=== PATIENT | female | born 1965 | race Caucasian/White ===

== ENCOUNTER → 2016-06-14 | Outpatient (CLI) | payer BC ==
--- NOTE | 2016-07-01 17:53 | P.PN ---
Progress Note - Text DATE OF SERVICE: 06/14/2016 CHIEF COMPLAINT: Follow-up gastric bypass. HISTORY OF PRESENT ILLNESS: Luzmaria Alfonso is a 51-year-old female who presents with complications from adjustable gastric band including severe lifestyle limiting gastroesophageal reflux disease and gastric prolapse. She initially had her band removal in June 2014. She then underwent a Matti-en-Y gastric bypass in January 2015. Her highest weight has been 229 pounds. [place] body weight for her 5-foot, 1-inch frame is 131 pounds. Today she comes in weighing 167 pounds. She has actually gained approximately 11 pounds since her last visit 5 months ago. She reports increase in energy. Body mass index is reduced from 43.4 down to 31.6. Percent excess weight loss is reduced to 63%. Total BMI point reduction is 11.7. She is almost a year and a half out from her procedure. She reports intermittent reflux. Approximately more than 6 months ago she had a balloon dilation for which her reflux had resolved. As she reports recurrence of her symptoms, she did complete a manometry. Now she presents for further evaluation and management. She reports her symptoms are worse especially with drink water. PAST MEDICAL HISTORY: 1. Gastroesophageal reflux disease. 2. History of morbid obesity. 3. Osteoarthritis. 4. Prior history of heart attack. 5. Morbid obesity. PAST SURGICAL HISTORY: 1. Tonsillectomy. 2. Hysterectomy. 3. Adjustable gastric band placement with subsequent removal. 4. Laparoscopic cholecystectomy. 5. Status post Matti-en-Y gastric bypass. 6. Upper endoscopy. MEDICATIONS: 1. Vitamin A. 2. Thiamine. 3. Theragran. 4. Nexium as needed. 5. Vitamin D. 6. Vitamin B12. 7. Calcium. 8. Acarbose. ALLERGIES: 1. ADHESIVE TAPE. 2. PREDNISONE. 3. SULFA. 4. STERI-STRIP. SOCIAL HISTORY: Denies any active alcohol or tobacco use. FAMILY HISTORY: Mother of complications of heart disease including diabetes. Father is living. She denies any known history of familial cancers. REVIEW OF SYSTEMS: CONSTITUTIONAL: [place] body weight is 131 pounds for a 5-foot, 1-inch frame. Original weight of 229 pounds. Present weight of 167 pounds. She has maintained a 62-pound weight loss. Percent excess weight loss is 63%. GASTROINTESTINAL: Prior history of stricture with balloon dilatation. Reports recurrent gastroesophageal reflux disease. ENDOCRINE: Reports hypoglycemia. No reports of diabetes which has now resolved. MUSCULOSKELETAL: Moderate resolution of multiple joint osteoarthritis. RESPIRATORY: Resolved obstructive sleep apnea. CARDIOVASCULAR: Has moderate improvement of her hypertension as well. HEENT: Resolved ulcers along the posterior oropharynx and vocal cords from her prior severe gastroesophageal reflux disease. GENITOURINARY: Resolved increased urinary frequency. NEURO: Denies any headaches or seizure disorders. PSYCH: Denies any depression or suicidal ideation. PHYSICAL EXAM: VITAL SIGNS: 98.2, 77, 16, 109/79; 5 feet 1 inch, 167 pounds. Body mass index 31.6. GENERAL: Well-developed female, in no acute distress. ABDOMEN: No palpable incisional hernias. Nontender. CHEST: Nonlabored respirations. CARDIOVASCULAR: Regular rhythm and rate. MUSCULOSKELETAL: No clubbing, cyanosis, or edema. NEURO: No focal or lateralizing signs. HEENT: No scleral icterus. Extraocular movements grossly intact. Moist buccal mucosa. NECK: Supple without lymphadenopathy. PSYCH: Appropriate affect. Alert and oriented to person, place and time. STUDIES: Manometry report was reviewed, demonstrating findings consistent with ineffective esophageal motility. Lower esophageal sphincter length was less than 1.5. Distal contractile velocity was suboptimal with all findings consistent with ineffective esophageal dysmotility. Multiple high-pressure zones were also identified and confirmed. ASSESSMENT: 1. Morbid obesity due to excess caloric intake. 2. Status post Matti-en-Y gastric bypass, revision from adjustable gastric band. 3. Vitamin A deficiency. 4. Secondary hyperparathyroidism. 5. Iatrogenic protein malnutrition. 6. Obstructive sleep apnea, resolved. 7. History of gastroesophageal reflux disease. 8. Thiamine deficiency, resolved. 9. Vitamin B12 deficiency, resolved. 10. History of gastrojejunal stricture. 11. Dietary surveillance and counseling. 12. Body mass index reduced from 43.4 down to 31.6. 13. History of low blood sugars with hypoglycemia. 14. Fatigue. 15. Vitamin D deficiency. 16. Ineffective esophageal motility. 17. Perimenopausal. 18. Screening for malignant colon neoplasm. PLAN: 1. She has concerns about starting estrogen, which she may start at any time. 2. As her symptoms are exacerbated with a stricture, I have also recommended a repeat balloon dilatation. 3. I have gone over the physiology of her reflux disease where she has had severe long-standing reflux, which has basically damaged the esophageal lining of her esophagus as well as the musculature. 4. In the interim, recommend control of her reflux disease between medications as well as dietary and lifestyle modifications. 5. The most extreme source of controlling her reflux includes a complete esophagojejunostomy with resection of her stomach, however, other alternatives may be beneficial. 6. Separately, she is over 50 and is also due for colonic screening. ADDENDUM: I did review her bariatric metabolic panel whereby she has thiamine deficiency which has been treated. I also recommend vitamin A supplementation as well as calcium intake and goal protein intake maintained of over 60 grams daily.
== END | disposition home or self-care (01) ==
CPT/HCPCS: 99211

== ENCOUNTER → 2017-01-09 | Outpatient (CLI) | payer BC ==
[2017-01-09 14:39] VITALS: BP 110/70; PULSE 68; RESP 16; TEMP 98.5; BMI 30.9
--- NOTE | 2017-02-09 20:58 | P.PN ---
Progress Note - Text DATE OF SERVICE: 01/09/2017 CHIEF COMPLAINT: Follow-up gastric bypass. HISTORY OF PRESENT ILLNESS: Luzmaria Alfonso is a 51-year-old female who initially presented with complications from adjustable gastric band including severe lifestyle limiting gastroesophageal reflux disease and gastric prolapse. She initially had her band removal in June 2014. She then underwent a Matti-en-Y gastric bypass in January 2015. Her highest weight has been 229 pounds. Her ideal body weight for her 5-foot, 1-inch frame is 131 pounds. Today she comes in weighing 164 pounds. She has lost 3 pounds since her last visit 7 months ago. Body mass index is reduced from 43.4 down to 31. Percent excess weight loss is reduced to 67%. Total BMI point reduction is 12.4. She is 2 years out from her procedure. Her gastroesophageal reflux disease is now worse in the last year. She is pending evaluation at [facility] regarding the severity of her reflux disease. She reports reflux disease including drinking water. She is taking toxic doses of antacids without relief. PAST MEDICAL HISTORY: 1. Gastroesophageal reflux disease. 2. History of morbid obesity. 3. Osteoarthritis. 4. Prior history of heart attack. 5. Morbid obesity. PAST SURGICAL HISTORY: 1. Tonsillectomy. 2. Hysterectomy. 3. Adjustable gastric band placement with subsequent removal. 4. Laparoscopic cholecystectomy. 5. Status post Matti-en-Y gastric bypass. 6. Upper endoscopy. MEDICATIONS: 1. Prilosec 2. Nexium 3. MVI ALLERGIES: 1. ADHESIVE TAPE. 2. PREDNISONE. 3. SULFA. 4. STERI-STRIP. SOCIAL HISTORY: Denies any active alcohol or tobacco use. FAMILY HISTORY: Mother of complications of heart disease including diabetes. Father is living. She denies any known history of familial cancers. REVIEW OF SYSTEMS: CONSTITUTIONAL: [place] body weight is 131 pounds for a 5-foot, 1-inch frame. Original weight of 229 pounds. Present weight of 164 pounds. She has maintained a 65-pound weight loss. Percent excess weight loss is 67%. GASTROINTESTINAL: Prior history of stricture with balloon dilatation. Reports recurrent gastroesophageal reflux disease, now more severe. ENDOCRINE: Reports hypoglycemia. No reports of diabetes which has now resolved. MUSCULOSKELETAL: Moderate resolution of multiple joint osteoarthritis. RESPIRATORY: Resolved obstructive sleep apnea. No asthma. CARDIOVASCULAR: Has moderate improvement of her hypertension as well. HEENT: Has recurrent ulcers along the posterior oropharynx and vocal cords from severe gastroesophageal reflux disease. GENITOURINARY: Resolved increased urinary frequency. No blood in urine. NEURO: Denies any headaches or seizure disorders. PSYCH: Denies any depression or suicidal ideation. PHYSICAL EXAM: VITAL SIGNS: 5 feet 1 inch, 164 pounds. Body mass index 31.0. Vital Signs 01/09/17 14:29 Temperature 98.5 F Pulse Rate 68 Respiratory 16 Rate Blood Pressure 110/70 GENERAL: Well-developed female, in no acute distress. ABDOMEN: No palpable incisional hernias. Nontender. CHEST: Nonlabored respirations. Equal bilateral excursions. CARDIOVASCULAR: Regular rhythm and rate. MUSCULOSKELETAL: No clubbing, cyanosis, or edema. NEURO: No focal or lateralizing signs. Cranial nerves II through XII grossly intact. HEENT: No scleral icterus. Extraocular movements grossly intact. Moist buccal mucosa. Hears conversational speech. NECK: Supple without lymphadenopathy. PSYCH: Appropriate affect. Alert and oriented to person, place and time. SKIN: Good skin turgor. Well perfused. ASSESSMENT: 1. Morbid obesity due to excess caloric intake. 2. Status post Matti-en-Y gastric bypass, revision from adjustable gastric band. 3. Obstructive sleep apnea, resolved. 4. History of gastroesophageal reflux disease. 5. Body mass index reduced from 43.4 down to 31.0. 6. Ineffective esophageal motility. PLAN: 1. She reports that her gastroesophageal reflux disease is now worse as prior to her gastric bypass. 2. In the past she had a stricture and she denies any dysphasia. Upper endoscopy was offered but she declined. 3. She has personally sought referral to [facility] tentatively for March 2017. She has requested medical records. 4. Alternatively, bile reflux may occur. Trial of cholestyramine was described. 5. Surgical options including total gastrectomy was described however is pending [facility] evaluation.
== END | disposition home or self-care (01) ==
LOC: BARWHC3 13:49
PROVIDERS: ATTEND Surgery Plastic and Reconstructive Surgery
DX: Z48.815 Encounter for surgical aftercare following surgery on the digestive system (principal); Z98.84 Bariatric surgery status; E66.01 Morbid (severe) obesity due to excess calories; K21.9 Gastro-esophageal reflux disease without esophagitis; Z68.31 Body mass index [BMI] 31.0-31.9, adult; Z79.899 Other long term (current) drug therapy; Z88.2 Allergy status to sulfonamides; Z91.09 Other allergy status, other than to drugs and biological substances; Z88.8 Allergy status to other drugs, medicaments and biological substances
CPT/HCPCS: 99211

== ENCOUNTER → 2017-11-26 | Outpatient (CLI) | payer BC ==
--- NOTE | 2017-11-26 16:54 | US ---
EXAMINATION TYPE: US venous doppler duplex LE LT DATE OF EXAM: 11/26/2017 4:43 PM COMPARISON: US bilateral lower extremity venous October 18, 2014 CLINICAL HISTORY: M79.662Pain in left lower leg, calf pain R06.9[place]. SIDE PERFORMED: Left TECHNIQUE: The lower extremity deep venous system is examined utilizing real time linear array sonog vale with graded compression, doppler sonography and color-flow sonography. VESSELS IMAGED: External Iliac Vein (EIV) Common Femoral Vein Deep Femoral Vein Greater Saphenous Vein * Femoral Vein Popliteal Vein Proximal Calf Veins (* superficial vessels) Left Leg: Negative for DVT Grayscale, color doppler, spectral doppler imaging performed of the deep veins of the left lower extr emity. There is normal flow, compressibility, vascular waveforms. IMPRESSION: No ultrasound evidence for acute DVT in the left lower extremity.
== END | disposition home or self-care (01) ==
LOC: RADUSWWP 16:22
PROVIDERS: ATTEND Orthopaedic Surgery
DX: M79.672 Pain in left foot (principal); M25.572 Pain in left ankle and joints of left foot; M79.662 Pain in left lower leg; R60.9 Edema, unspecified; I80.9 Phlebitis and thrombophlebitis of unspecified site; Z98.84 Bariatric surgery status

== ENCOUNTER → 2018-02-20 | Outpatient (CLI) | payer BC ==
--- NOTE | 2018-02-20 14:13 | MM ---
Reason for exam: screening (asymptomatic). Last mammogram was performed 6 years and 9 months ago. History: Patient is postmenopausal. Took hormonal contraceptives for 9 years beginning at age 16. Physical Findings: A clinical breast exam by your physician is recommended on an annual basis and results should be correlated with mammographic findings. MG 3D Screening Mammo W/Cad Bilateral CC and MLO view(s) were taken. Prior study comparison: May 08, 2011, bilateral digital screening mammo w/CAD. The breast tissue is heterogeneously dense. This may lower the sensitivity of mammography. Finding: There is a 6 mm circumscribed oval mass located 2 cm from the nipple in the subareolar position of the right breast. New finding since May 08, 2011. ASSESSMENT: Incomplete: need additional imaging evaluation, BI-RAD 0 RECOMMENDATION: Ultrasound of the right breast. [facility] will attempt to contact patient to return for ultrasound.
== END ==
LOC: RADMAMWWP 07:37
PROVIDERS: ATTEND Obstetrics & Gynecology
DX: Z12.31 Encounter for screening mammogram for malignant neoplasm of breast (principal)
CPT/HCPCS: 77063; 77067

== ENCOUNTER → 2018-02-27 | Outpatient (CLI) | payer BC ==
--- NOTE | 2018-02-27 14:57 | USB ---
Reason for exam: additional evaluation requested from abnormal screening. History: Patient is postmenopausal. Took hormonal contraceptives for 9 years beginning at age 16. Physical Findings: Nurse did not find any significant physical abnormalities on exam. US Breast Workup RT Right complete breast ultrasound includes all four quadrants, the retroareolar region and axilla. Finding demonstrates a 0.6 x 0.4 x 0.4cm mixed lesion, possibly cystic at 4 o'clock. This correlates well with the new mammographic mass. 6 month follow up mammogram recommended. These results were verbally communicated with the patient and result sheet given to the patient on 02/27/18. ASSESSMENT: Probably benign, BI-RAD 3 RECOMMENDATION: Follow-up diagnostic mammogram of the right breast in 6 months.
== END | disposition home or self-care (01) ==
LOC: RADUSWWP 13:53
PROVIDERS: ATTEND Obstetrics & Gynecology
DX: R92.8 Other abnormal and inconclusive findings on diagnostic imaging of breast (principal)

== ENCOUNTER → 2018-07-22 | Outpatient (CLI) | payer BC ==
--- NOTE | 2018-07-22 15:09 | CT ---
EXAMINATION TYPE: CT sinus wo con DATE OF EXAM: 07/22/2018 COMPARISON: None HISTORY: sinus congestion and headaches CT DLP: 454 mGycm. Automated Exposure Control for Dose Reduction was Utilized. TECHNIQUE: CT scan of the sinuses is performed without contrast, axial images are obtained, coronal r eformatted images are also reviewed. FINDINGS: The paranasal sinuses including the frontal, ethmoid, sphenoid, and maxillary sinuses bila terally are well-aerated without abnormal opacification. The ostiomeatal complex is patent bilateral ly on the coronal images. Visualized portion of mastoid air cells show no abnormal opacification. The globes are intact bilate rally. Nasal septal deviation noted. Archana cell on the left noted. Chronic hypertrophic changes at t he atlantooccipital junction is noted on the right. Cerebellar tonsils are slightly low-lying in posi tion. Correlate with MRI as clinically warranted. IMPRESSION: 1. The sinuses are clear and the ostiomeatal complex is patent bilaterally. There is a nasal septal deviation.
== END ==
LOC: RADCTMAIN 14:31
PROVIDERS: ATTEND Family Medicine
DX: J34.2 Deviated nasal septum (principal)
CPT/HCPCS: 70486

== ENCOUNTER → 2018-07-23 | Outpatient (CLI) | payer BC | LOC: LABWHC1 10:00 | PROVIDERS: ATTEND Otolaryngology | DX: J30.89 Other allergic rhinitis (principal) | CPT/HCPCS: 36415 ==

== ENCOUNTER → 2018-08-08 | Outpatient (CLI) | payer BC ==
--- NOTE | 2018-08-09 13:36 | MR ---
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 The corpus callosum, pituitary, cervical medullary junction, cerebe llopontine angles are normal. Minimal inferior cerebellar tonsillar ectopia noted. Scattered hyperint ensities are present within the juxta and subcortical and periventricular white matter on inversion r ecovery and T2-weighted sequences, approximately 15-20 lesions are present. The largest on axial imag e 18 in the right anterior external capsule measures approximately 5 to 6 mm in greatest dimension. T here are normal vascular flow voids. Orbits show symmetric appearance. IMPRESSION: Nonspecific white matter demyelination. Differential diagnostic considerations include hy pertension, migraine headaches, vasculitis and chronic small vessel ischemia, Lyme disease, multiple sclerosis in the appropriate clinical setting, correlate. Additional findings above. Follow-up as ind icated.
== END | disposition home or self-care (01) ==
LOC: RADMRIMAIN 19:37
PROVIDERS: ATTEND Physician Assistant
DX: G37.8 Other specified demyelinating diseases of central nervous system (principal); Q07.00 Arnold-Chiari syndrome without spina bifida or hydrocephalus
CPT/HCPCS: 70551

== ENCOUNTER → 2018-08-19 | Outpatient (CLI) | payer BC ==
--- NOTE | 2018-08-21 09:56 | ECHOF ---
Referral Reason: MEASUREMENTS -------- HEIGHT: 157.5 cm WEIGHT: 73.9 kg BP: RVIDd: 2.9 cm (< 3.3) IVSd: 1.1 cm (0.6 - 1.1) LVIDd: 4.3 cm (3.9 - 5.3) LVPWd: 1.1 cm (0.6 - 1.1) IVSs: 1.6 cm LVIDs: 2.3 cm LVPWs: 1.3 cm LAESV Index (A-L): 21.11 ml/m Ao Diam: 2.9 cm (2.0 - 3.7) AV Cusp: 2.1 cm (1.5 - 2.6) LA Diam: 3.5 cm (2.7 - 3.8) MV EXCURSION: 20.954 mm (> 18.000) MV EF SLOPE: 89 mm/s (70 - 150) EPSS: 0.2 cm MV E Roque: 0.76 m/s MV DecT: 265 ms MV A Roque: 0.83 m/s MV E/A Ratio: 0.92 RAP: 5.00 mmHg RVSP: 15.39 mmHg FINDINGS -------- Sinus rhythm. This was a technically good study. The left ventricular size is normal. Left ventricular wall thickness is normal. Overall left vent ricular systolic function is normal with, an EF between 55 - 60 %. The right ventricle is normal in size. The left atrial size is normal. The right atrial size is normal. The aortic valve is trileaflet and appears structurally normal. There is trace mitral regurgitation. Trace tricuspid regurgitation present. The right ventricular systolic pressure, as measured by Dopp ler, is 15.39mmHg. Trace/mild (physiologic) pulmonic regurgitation. The aortic root size is normal. Normal inferior vena cava with normal inspiratory collapse consistent with estimated right atrial pre ssure of 5 mmHg. There is no pericardial effusion. CONCLUSIONS -------- 1. Sinus rhythm. 2. This was a technically good study. 3. The left ventricular size is normal. 4. Left ventricular wall thickness is normal. 5. Overall left ventricular systolic function is normal with, an EF between 55 - 60 %. 6. The right ventricle is normal in size. 7. The left atrial size is normal. 8. The right atrial size is normal. 9. The aortic valve is trileaflet and appears structurally normal. 10. There is trace mitral regurgitation. 11. Trace tricuspid regurgitation present. 12. The right ventricular systolic pressure, as measured by Doppler, is 15.39mmHg. 13. Trace/mild (physiologic) pulmonic regurgitation. 14. The aortic root size is normal. 15. Normal inferior vena cava with normal inspiratory collapse consistent with estimated right atrial pressure of 5 mmHg. 16. There is no pericardial effusion. [employer]ABIL[employer]ER: Ana Maria Jha RDCS
== END ==
LOC: RADECHMAIN 13:10
PROVIDERS: ATTEND Family Medicine
DX: I37.1 Nonrheumatic pulmonary valve insufficiency (principal)
CPT/HCPCS: 93306

== ENCOUNTER → 2020-01-06 | Outpatient (CLI) | payer BC ==
[2020-01-06 11:10] LABS: HCT 37.4 % (34.0-46.0); Hypochromasia Slight; MCH 28.6 pg (25.0-35.0); MCV 89.4 fL (80.0-100.0); Platelet Count 209 k/uL (150-450); RBC 4.18 m/uL (3.80-5.40); RDW 13.8 % (11.5-15.5); WBC 4.4 k/uL (3.8-10.6)
[2020-01-06 16:55] LABS: Gliadin AB IgA, Deaminated NEGATIVE (NEGATIVE); Gliadin AB IgA, Unit 1.8 U/mL; Gliadin AB IgG, Deaminated NEGATIVE (NEGATIVE)
[2020-01-06 20:15] LABS: Erythrocyte Sedimentation Rate 6 mm/Hr (0-30)
== END | disposition home or self-care (01) ==
LOC: LABWHC1 09:30
PROVIDERS: ATTEND Internal Medicine Gastroenterology
DX: K52.9 Noninfective gastroenteritis and colitis, unspecified (principal); R19.7 Diarrhea, unspecified
CPT/HCPCS: 36415; 83516; 83630; 85027; 85652; 86140; 87045; 87046; 87324; 87328; 87329

== ENCOUNTER → 2020-02-22 | Outpatient (CLI) | payer BC | END | disposition home or self-care (01) | LOC: LABWHC1 10:36 | PROVIDERS: ATTEND Physician Assistant | DX: R19.7 Diarrhea, unspecified (principal); R63.4 Abnormal weight loss | CPT/HCPCS: 36415; 83655; 84439; 84443 ==

== ENCOUNTER → 2020-10-04 | Outpatient (CLI) | payer BC ==
--- NOTE | 2020-10-04 12:11 | ECHOS ---
STRESS ECHOCARDIOGRAM INDICATIONS: Dyspnea. MEDICATIONS: BASELINE HEART RATE: 88 BASELINE BLOOD PRESSURE: 111/75 MAXIMUM HEART RATE: 147 MAXIMUM BLOOD PRESSURE: 137/83 85% MPHR: 140 100% MPHR: 165 METS: 7.1 MAXIMUM STAGE REACHED: II TOTAL EXERCISE TIME: 6 minutes CLINICAL INFORMATION: Baseline rhythm is ectopic atrial rhythm, rate of 88, normal axis and intervals, nonspecific ST-T wave changes. Rare PVCs. Baseline blood pressure 111/75 mmHg. Patient exercised on Curry protocol for 6 minutes reaching peak rate 147 beats per minute which is equal to 89% maximum predicted heart rate. Peak blood pressure 137/83 mmHg. Test was terminated secondary to fatigue. There was no chest pain. Electrocardiograph monitoring revealed occasional single PVCs. There was no evidence of diagnostic ischemic ST deviation. Baseline echocardiogram revealed normal wall motion. At peak exercise, there was normal wall motion augmentation with no hypokinesis or dyskinesis. CONCLUSION: 1. Decreased exercise tolerance with normal electrocardiograph response to exercise. 2. Normal stress echocardiogram with no evidence of stress-induced ischemia. MMODL / IJN: [id number] /
== END | disposition home or self-care (01) ==
LOC: RADNMMAIN 08:55
PROVIDERS: ATTEND Family Medicine
DX: R06.00 Dyspnea, unspecified (principal)
CPT/HCPCS: 93351

== ENCOUNTER → 2021-07-11 | Outpatient (CLI) | payer BC ==
--- NOTE | 2021-07-12 09:06 | MM ---
Reason for exam: screening (asymptomatic). Last mammogram was performed 3 years and 5 months ago. History: Patient is postmenopausal. Took hormonal contraceptives for 9 years beginning at age 16. Physical Findings: A clinical breast exam by your physician is recommended on an annual basis and results should be correlated with mammographic findings. MG 3D Screening Mammo W/Cad Bilateral CC and MLO view(s) were taken. Prior study comparison: February 20, 2018, bilateral MG 3d screening mammo w/cad. May 08, 2011, bilateral digital screening mammo w/CAD. The breast tissue is heterogeneously dense. This may lower the sensitivity of mammography. Stable benign calcifications. There is no discrete abnormality. No significant changes when compared with prior studies. ASSESSMENT: Benign, BI-RAD 2 RECOMMENDATION: Routine screening mammogram of both breasts in 1 year.
== END | disposition home or self-care (01) ==
LOC: RADMAMWWP 07:37
PROVIDERS: ATTEND Family Medicine
DX: Z12.31 Encounter for screening mammogram for malignant neoplasm of breast (principal); Z78.0 Asymptomatic menopausal state
CPT/HCPCS: 77063; 77067

== ENCOUNTER → 2021-11-10 | Outpatient (CLI) | payer BC | END | disposition home or self-care (01) | LOC: LABWHC1 09:39 | DX: E55.9 Vitamin D deficiency, unspecified (principal) | CPT/HCPCS: 36415; 82306; 82652; 83970 ==

== ENCOUNTER → 2023-01-17 | Outpatient (CLI) | payer BC ==
[2023-01-17 16:23] LABS: Chol/HDL Ratio 3.14 Ratio; LDL Cholesterol,Calculated 88.5 mg/dL (0.0-131.0)
[2023-01-18 03:57] LABS: Apolipoprotein A1 154 mg/dL (125 - 215)
== END | disposition home or self-care (01) ==
LOC: LABWHC1 08:37
PROVIDERS: ATTEND Internal Medicine
DX: E78.5 Hyperlipidemia, unspecified (principal); R07.9 Chest pain, unspecified
CPT/HCPCS: 36415; 80061; 82172; 83695

== ENCOUNTER 2023-02-06 10:09 | Day surgery (SDC) | payer BC ==
[~2023-02-06 10:09] MED LIST: ALPRAZolam 0.25 MG TAB PO PRN; ALPRAZolam 0.5 MG TAB PO PRN; ASPIRIN 325 MG TAB PO STA; ATORVASTATIN 80 MG TAB PO STA; HEPARIN SODIUM,PORCINE (1 ML) 2,500 UNIT in SODIUM CHLORIDE 0.9% 250 ML IRRIGATION PRN; HEPARIN SODIUM,PORCINE 10,000 UNIT in SODIUM CHLORIDE 0.9% 1,000 ML IRRIGATION PRN; NITROGLYCERIN SL TABS 0.4 MG TAB SUBLINGUAL PRN; SODIUM CHLORIDE 0.9% 1,000 ML in EMPTY BAG 1 BAG IV SCH
[2023-02-06 10:47] VITALS: RESP 18; TEMP 97.1
[2023-02-06 10:59] LABS: Basophils % (A) 1 %; Eosinophils # (A) 1.7 k/uL (0-0.7); Eosinophils % (A) 23 %; HCT 40.6 % (34.0-46.0); Lymphocytes % (A) 26 %; MCH 29.1 pg (25.0-35.0); MCHC 32.1 g/dL (31.0-37.0); MCV 90.7 fL (80.0-100.0); Mean Platelet Volume 8.8; Monocytes # (A) 0.3 k/uL (0-1.0); Monocytes % (A) 4 %; Neutrophils # (A) 3.3 k/uL (1.3-7.7); Neutrophils % (A) 44 %; Platelet Count 242 k/uL (150-450); RBC 4.47 m/uL (3.80-5.40); RDW 14.1 % (11.5-15.5); WBC 7.5 k/uL (3.8-10.6)
[2023-02-06 11:12] LABS: African American GFR (CKD) >90 (>60 ml/min/1.73 sqM); Anion Gap 7 mmol/L; Blood Urea Nitrogen 6 mg/dL (7-17); Carbon Dioxide 26 mmol/L (22-30); Chloride 107 mmol/L (98-107); Glucose 89 mg/dL (74-99); Non-African American GFR(CKD) >90 (>60 ml/min/1.73 sqM); Potassium 4.4 mmol/L (3.5-5.1); Sodium 140 mmol/L (137-145)
[2023-02-06 12:01] LABS: RBC Morphology Normal
[2023-02-06] MEDS ORDERED: VERAPAMIL 2.5 MG/ML 2 ML AMP ONE (12:05)
[2023-02-06] MEDS ORDERED: HEPARIN SODIUM 1,000 UN/ML (10ML VL) ONE (12:20)
[2023-02-06] MEDS ORDERED: fentaNYL (PF) 50 MCG/ML 2 ML AMP ONE (12:20)
[2023-02-06] MEDS: MIDAZOLAM 2 MG/2 ML VIAL IVP ONE ×2 (12:28→12:37)
[2023-02-06] MEDS ORDERED: LIDOCAINE 1% INJ 10MG/ML (5 ML VIAL-PF) SQ ONE (12:31)
[2023-02-06] MEDS ORDERED: VERAPAMIL SYRINGE (5 MG/10 ML) INTRAARTER ONE (12:33)
[2023-02-06] MEDS: fentaNYL (PF) 50 MCG/ML 2 ML AMP IVP ONE ×2 (12:35→12:37)
[2023-02-06] MEDS ORDERED: HEPARIN SODIUM 1,000 UN/ML (10ML VL) IVP ONE (12:39)
--- NOTE | 2023-02-06 12:47 | P.CARDCATH ---
Description of Procedure: PROCEDURES PERFORMED: Left heart catheterization, bilateral coronary angiography, ultrasound guided arterial access INDICATION: Abnormal stress test CONSENT:I have discussed the risks, benefits and alternative therapies for the above-mentioned procedure and for both sedation/analgesia as well as necessary blood product administration, if indicated, as they pertain to this patient. The patient has indicated understanding and acceptance of the risks and procedures discussed. PROCEDURE: After the risks, benefits and alternatives of the above mentioned procedure explained in detail with the patient, informed consent was obtained. Patient was taken to the catheterization lab and prepped and draped in usual fashion. Ultrasound guidance was used to assess for arterial access. 1% lidocaine was used to anesthetize the right radial artery. A 6-Qatari sheath was placed in the right radial artery using modified Seldinger technique and ultrasound guidance. Left coronary angiography was performed with a 5-Qatari JL 3.5 catheter and right coronary angiography was performed with a 5-Qatari JR5 catheter in various views. A 5-Qatari FR5 catheter was inserted into the left ventricle and pressure measurements were obtained. The right radial sheath was removed and a TR band was placed with hemostasis achieved. The patient to lerated the procedure well. Patient was transported back to the post catheterization holding area in stable condition. Conscious Sedation: Patient was monitored under the direct supervision of myself for conscious sedation using Versed and fentanyl for a total duration of 15 minutes HEMODYNAMICS: Aorta: 117/78 LV: 121/8, LVEDP 16 SELECTIVE CORONARY ARTERIOGRAPHY: LEFT MAIN: The left main is a large caliber vessel which bifurcates into the LAD and circumflex. There is no significant stenosis. LEFT ANTERIOR DESCENDING CORONARY ARTERY: LAD is a large caliber vessel which wraps around to the apex. There is no significant stenosis. LEFT CIRCUMFLEX CORONARY ARTERY: Left circumflex is a moderate caliber vessel without significant stenosis. RIGHT CORONARY ARTERY: The right coronary artery is a large caliber vessel which gives off a PDA and PLV branch and is the dominant vessel. There is no significant stenosis. FINAL IMPRESSION: 1. Normal coronary arteries as described above. 2. Normal left sided filling pressures PLAN: 1. Aggressive risk factor modification per most recent ACC/AHA guidelines. 2. Follow-up in the office in 1-2 weeks.
[2023-02-06] MEDS ORDERED: IOPAMIDOL-370 100ML BTL INJ ONE (12:50)
[2023-02-06 16:06] VITALS: BP 111/73; PULSE 62
== END 2023-02-06 16:06 | disposition home or self-care (01) ==
LOC: CATHCVL 10:09
PROVIDERS: ATTEND Internal Medicine
DX: R94.39 Abnormal result of other cardiovascular function study (principal); Z82.49 Family history of ischemic heart disease and other diseases of the circulatory system; Z87.891 Personal history of nicotine dependence; Z88.2 Allergy status to sulfonamides; Z79.82 Long term (current) use of aspirin; Z79.899 Other long term (current) drug therapy
CPT/HCPCS: 93458; 76937; 80048; 85025; C1769 ×2; C1894; J2250; J2001; J3010; J1644; Q9967

== ENCOUNTER → 2023-09-26 | Outpatient (CLI) | payer BC ==
--- NOTE | 2023-09-30 09:39 | MM ---
Reason for Exam: Screening (asymptomatic). Last mammogram was performed 1 year(s) and 1 month(s) ago. Patient History: Menarche at age 9. First Full-Term at age 24. Right ovary removed at age 44. Hysterectomy at age 44. Postmenopausal. Patient has history of breast feeding. Hormonal Contraceptives for 9 years from age 16 until age 27. Risk Values: Elizabeth 5 year model risk: 1.3%. NCI Lifetime model risk: 7.6%. Prior Study Comparison: 02/20/2018 Bilateral Screening Mammogram, [facility]. 07/11/2021 Bilateral Screening Mammogram, [facility]. 08/07/2022 Bilateral MG 3D screening mammo w/cad, [facility]. Tissue Density: There are scattered areas of fibroglandular density. Findings: Analyzed By CAD. Right breast: There is no suspicious group of microcalcifications or new suspicious mass. Left breast: There is no suspicious group of microcalcifications or new suspicious mass. Overall Assessment: Negative, BI-RAD 1 Management: Screening Mammogram of both breasts in [address] [facility] will attempt to contact patient to return for supplemental views and ultrasound if indicated. Patient should continue monthly self-breast exams. A clinical breast exam by your physician is recommended on an annual basis. This exam should not preclude additional follow-up of suspicious palpable abnormalities. Note on Elizabeth scores and lifetime risk: 1. A Elizabeth score greater than 3% is considered moderate risk. If this is the case, consider specialist referral to assess eligibility for a risk reducing agent. 2. If overall lifetime risk for the development of breast cancer is 20% or higher, the patient may qualify for future screening with alternating mammogram and breast MRI. Electronically signed and approved by: Aaron Priest DO
== END | disposition home or self-care (01) ==
LOC: RADMAMWWP 10:47
PROVIDERS: ATTEND Family Medicine
DX: Z12.31 Encounter for screening mammogram for malignant neoplasm of breast (principal); Z78.0 Asymptomatic menopausal state
CPT/HCPCS: 77063; 77067

== ENCOUNTER → 2024-12-03 | Outpatient (CLI) | payer BC ==
--- NOTE | 2024-12-03 11:40 | MM ---
Reason for Exam: Screening (asymptomatic). Last mammogram was performed 1 year(s) and 3 month(s) ago. Patient History: Menarche at age 9. First Full-Term at age 24. Right ovary removed at age 44. Hysterectomy at age 44. Postmenopausal. Patient has history of breast feeding. Hormonal Contraceptives for 9 years from age 16 until age 27. Currently using Estrogen and Progesterone, starting at age 47. Risk Values: Elizabeth 5 year model risk: 1.4%. NCI Lifetime model risk: 7.4%. Prior Study Comparison: 02/20/2018 Bilateral Screening Mammogram, [facility]. 07/11/2021 Bilateral Screening Mammogram, [facility]. 08/07/2022 Bilateral MG 3D screening mammo w/cad, [facility]. 09/26/2023 Bilateral MG 3D screening mammo w/cad, [facility]. Tissue Density: There are scattered areas of fibroglandular density. Findings: Analyzed By CAD. There is no suspicious group of microcalcifications or new suspicious mass in either breast. Overall Assessment: Negative, BI-RAD 1 Management: Screening Mammogram of both breasts in 1 year. Patient should continue monthly self-breast exams. A clinical breast exam by your physician is recommended on an annual basis. This exam should not preclude additional follow-up of suspicious palpable abnormalities. Note on Elizabeth scores and lifetime risk: 1. A Elizabeth score greater than 3% is considered moderate risk. If this is the case, consider specialist referral to assess eligibility for a risk reducing agent. 2. If overall lifetime risk for the development of breast cancer is 20% or higher, the patient may qualify for future screening with alternating mammogram and breast MRI. [facility], , 12/03/2024 11:37 AM. Electronically signed and approved by: Nolvia Billings M.D. Radiologist
== END | disposition home or self-care (01) ==
LOC: RADMAMWWP 09:09
PROVIDERS: ATTEND Obstetrics & Gynecology
DX: Z12.31 Encounter for screening mammogram for malignant neoplasm of breast (principal); R92.323 Mammographic fibroglandular density, bilateral breasts; Z78.0 Asymptomatic menopausal state; Z92.0 Personal history of contraception
CPT/HCPCS: 77063; 77067